=== PATIENT | male | born 1965 | race Caucasian/White ===

== ENCOUNTER 2017-09-25 08:23 | Day surgery (SDC) | payer BC, MEDICARE ==
[2017-09-19 16:38] VITALS: BMI 34.9
[~2017-09-25 08:23] MED LIST: AMPICILLIN 1,000 MG in SODIUM CHLORIDE 0.9% 50 ML IVPB ONE; DEXAMETHASONE SOD PHOSPHATE 10 MG/ML 1 ML VIAL IV ONE; GENTAMICIN 200 MG in SODIUM CHLORIDE 0.9% 100 ML IVPB ONE; LACTATED RINGERS 1,000 ML IV SCH; MIDAZOLAM 2 MG/2 ML VIAL IV PRN; ONDANSETRON 4 MG/2 ML VIAL IVP ONE
[2017-09-25] MEDS ORDERED: LIDOCAINE 1% 20 ML VIAL (10MG/ML) FOR IV START INTRADERMA ONE (09:04)
[2017-09-25 09:05] LABS: Glucose,Whole Blood 151 mg/dL (75-99)
[2017-09-25] MEDS ORDERED: SUCCINYLCHOLINE CHLORIDE VIAL 200 MG/10 ML VIAL IV ONE (09:26)
[2017-09-25] MEDS ORDERED: MIDAZOLAM 2 MG/2 ML VIAL ONE (09:26)
[2017-09-25] MEDS ORDERED: fentaNYL (PF) 50 MCG/ML 2 ML AMP ONE (09:26)
[2017-09-25] MEDS ORDERED: NEOSTIGMINE 1 MG/ML 10 ML VIAL ONE (09:26)
[2017-09-25] MEDS ORDERED: LIDOCAINE 1% INJ 10MG/ML (20 ML MDV) ONE (09:26)
[2017-09-25] MEDS ORDERED: GLYCOPYRROLATE 0.2 MG/ML 2 ML VIAL ONE (09:26)
[2017-09-25] MEDS ORDERED: HYDROmorphone (PF) 1 MG/ML ONE (09:26)
[2017-09-25] MEDS ORDERED: ROCURONIUM BROMIDE 10 MG/ML 10 ML VIAL IV ONE (09:26)
[2017-09-25] MEDS ORDERED: PROPOFOL 10 MG/ML 20 ML VIAL IV ONE (09:26)
[2017-09-25] MEDS ORDERED: GENTAMICIN 80 MG in SODIUM CHLORIDE 0.9% 200 ML IRRIGATION ONE (10:01)
--- NOTE | 2017-09-25 11:16 | P.OP ---
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 He has failed conservative measures. He comes for an inflatable implant. Description of Procedure: The patient is brought to the operating suite. He is given a successful general endotracheal anesthesia. A sterile prep and drape was administered. He was given prophylactic antibiotics. A midline incision from the base of the penis to just above the pubis is made. I dissect down through the subcutaneous tissue. The rectus fascia is opened in the midline. The prevesical space is developed. A 65 mL reservoir is placed and filled without tension. The tubing is brought out through the external inguinal ring. The rectus fascias closed with the running 0 PDS. The corpora cavernosa I then cleaned bilaterally. Stay stitches with 3-0 PDS are placed. Corporotomies were made bilaterally. He is dilated proximally and distally with Metzenbaum scissors dilated from 8-12. It is of note that the corpora did not bleed much due to his diabetes and the dilation is very tight up to 12-Syriac Hegar. Because of this a CXR cylinder will be placed instead of the traditional CX. The corpora measures 11 proximally and 7 distally bilaterally. I used a 14 cm with 4 cm rear-tip steel hanger. Using the Russel introducer and the Boubacar needle each of the cylinders brought out through the corporal tips bilaterally through the glans penis. Each cylinder fits nicely into the corporal dilations. Cylinder I dilated nicely without ST deformities. The corporotomies are closed with running 3-0 PDS. I inflated the implant another time, it inflates nicely. I connected the reservoir to the scrotal pump with straight connects. Implant is inflated one more time with the scrotal pump without difficulty. Scrotal pumps placed in a separate compartment in the right hemiscrotum. The wound is closed with 3-0 chromic and then 4-0 Monocryl. Patient's awakened and returned recovery room good condition. Blood loss is approximately 50 mL. The urine is clear postoperatively with a straight cath. The patient tolerated the procedure well.
[2017-09-25 11:41] LABS: Glucose,Whole Blood 126 mg/dL (75-99)
[2017-09-25] MEDS: HYDROmorphone 0.5 MG/0.5 ML SYRINGE IVP PRN ×2 (11:46→11:53)
[2017-09-25 11:52] VITALS: TEMP 97.6
[2017-09-25] MEDS ORDERED: HYDROcodone/APAP 7.5-325MG 1 EACH TAB PO ONE (13:32)
[2017-09-25 13:50] VITALS: RESP 18
[2017-09-25] MEDS ORDERED: ONDANSETRON ODT 4 MG TAB PO STA (14:38)
[2017-09-25 14:42] VITALS: BP 148/88; PULSE 80
== END 2017-09-25 15:03 | disposition home or self-care (01) ==
LOC: OR 08:23
PROVIDERS: ATTEND Urology
DX: E10.51 Type 1 diabetes mellitus with diabetic peripheral angiopathy without gangrene (principal); N52.1 Erectile dysfunction due to diseases classified elsewhere; I12.9 Hypertensive chronic kidney disease with stage 1 through stage 4 chronic kidney disease, or unspecified chronic kidney disease; E10.22 Type 1 diabetes mellitus with diabetic chronic kidney disease; N18.9 Chronic kidney disease, unspecified; Z94.0 Kidney transplant status; Z89.511 Acquired absence of right leg below knee; Z89.422 Acquired absence of other left toe(s); E78.00 Pure hypercholesterolemia, unspecified; K21.9 Gastro-esophageal reflux disease without esophagitis; Z86.718 Personal history of other venous thrombosis and embolism; Z79.82 Long term (current) use of aspirin; Z79.4 Long term (current) use of insulin; Z79.899 Other long term (current) drug therapy; Z79.891 Long term (current) use of opiate analgesic; Z91.013 Allergy to seafood; Z87.891 Personal history of nicotine dependence
CPT/HCPCS: 54405; C1713; C1813; J2250; J0330; J1580 ×2; J1100; J2710; J2405; J2001; J3010; J0290; J1170 ×2; J2704

== ENCOUNTER → 2017-12-23 | Outpatient (CLI) | payer MEDICARE ==
[2017-12-23 12:53] LABS: Appearance,Urine Clear (Clear); Bilirubin,Urine Negative (Negative); Blood,Urine Small (Negative); Color,Urine Yellow; Glucose,Urine (UA) Negative (Negative); Ketones,Urine Negative (Negative); Leukocyte Esterase,Urine Negative (Negative); Nitrite,Urine Negative (Negative); PH, Urine 6.5 (5.0-8.0); Protein,Urine 1+ (Negative); RBC,Urine 4 /hpf (0-5); Specific Gravity,Urine 1.011 (1.001-1.035); Squamous Epithelial Cell,Urine <1 /hpf (0-4); Urobilinogen,Urine <2.0 mg/dL (<2.0)
[2017-12-23 12:56] LABS: Anion Gap 13 mmol/L; Blood Urea Nitrogen 19 mg/dL (9-20); Calcium 10.1 mg/dL (8.4-10.2); Carbon Dioxide 29 mmol/L (22-30); Chloride 97 mmol/L (98-107); Glucose 233 mg/dL (74-99); Potassium 5.1 mmol/L (3.5-5.1); Sodium 139 mmol/L (137-145)
[2017-12-23 13:02] LABS: Basophils # (A) 0.1 k/uL (0-0.2); Basophils % (A) 1 %; Eosinophils # (A) 0.1 k/uL (0-0.7); Eosinophils % (A) 2 %; HGB 17.9 gm/dL (13.0-17.5); Lymphocytes % (A) 13 %; MCH 28.7 pg (25.0-35.0); MCHC 32.1 g/dL (31.0-37.0); MCV 89.3 fL (80.0-100.0); Mean Platelet Volume 7.2; Monocytes # (A) 0.5 k/uL (0-1.0); Monocytes % (A) 6 %; Neutrophils # (A) 5.9 k/uL (1.3-7.7); Neutrophils % (A) 77 %; Platelet Count 271 k/uL (150-450); RBC 6.25 m/uL (4.30-5.90); RDW 13.2 % (11.5-15.5); WBC 7.6 k/uL (3.8-10.6)
[2017-12-23 13:04] LABS: HCT 55.8 % (39.0-53.0)
== END | disposition home or self-care (01) ==
LOC: LABPAT 12:24
PROVIDERS: ATTEND Urology
DX: Z01.812 Encounter for preprocedural laboratory examination (principal); N99.89 Other postprocedural complications and disorders of genitourinary system; R35.0 Frequency of micturition; Z79.899 Other long term (current) drug therapy
CPT/HCPCS: 36415; 80048; 81001; 85025; 87086

== ENCOUNTER 2017-12-25 08:32 | Day surgery (SDC) | payer MEDICARE ==
[2017-12-20 15:34] VITALS: BMI 33.9
[~2017-12-25 08:32] MED LIST changes: -DEXAMETHASONE SOD PHOSPHATE 10 MG/ML 1 ML VIAL IV ONE; +GENTAMICIN 140 MG in SODIUM CHLORIDE 0.9% 100 ML IVPB ONE; -GENTAMICIN 200 MG in SODIUM CHLORIDE 0.9% 100 ML IVPB ONE; +HYDROmorphone 0.5 MG/0.5 ML SYRINGE IVP PRN; -MIDAZOLAM 2 MG/2 ML VIAL IV PRN; +MORPHINE SULFATE 4 MG/ML SYRINGE IV PRN; -ONDANSETRON 4 MG/2 ML VIAL IVP ONE
[2017-12-25 08:50] VITALS: BP 161/88; PULSE 92; RESP 18; TEMP 98
[2017-12-25] MEDS ORDERED: LIDOCAINE 1% 20 ML VIAL (10MG/ML) FOR IV START INTRADERMA ONE (09:09)
[2017-12-25] MEDS ORDERED: ONDANSETRON 4 MG/2 ML VIAL ONE (09:13)
--- NOTE | 2017-12-25 10:01 | P.DS ---
Providers Date of admission: 12/25/2017 Attending physician: Kike Marlow Primary care physician: Neal Rodrigez MD Hospital Course: The patient had a penile implant placed approximately 3 months ago. His initial visit showed that the implant was working however proximally month ago he came in the implant did not appear to be working by him or myself. He was set up for an implant revision however today when I cycled the implant seemed to work nicely. I am uncertain as to what was going on perhaps a small pin in the pump was misaligned and has realigned itself appeared at this point time I see no reason to revise this at is pumping and deflating nicely. I'll see him back in the office in 2 weeks Plan - Discharge Summary New Discharge Prescriptions: No Action Insulin Aspart [NovoLOG] 0 units SQ ACHS Mycophenolate Mofetil [Cellcept] 1,000 mg PO BID Tacrolimus [Prograf] 2 mg PO Q12H Omeprazole [PriLOSEC] 20 mg PO AC-BRKFST HYDROcodone/APAP 5-325MG [[place] 5] 1 - 2 each PO Q4H PRN PRN Reason: Pain Magnesium 1,000 mg PO BID Aspirin [Adult Low Dose Aspirin EC] 81 mg PO DAILY Lisinopril [Prinivil] 5 mg PO BID Hydrocodone/Acetaminophen [[place] 7.5-325] 1 each PO Q4HR PRN #30 tab PRN Reason: Pain Control Discharge Medication List Aspirin [Adult Low Dose Aspirin EC] 81 mg PO DAILY 07/15/15 [History] HYDROcodone/APAP 5-325MG [[place] 5] 1 - 2 each PO Q4H PRN 07/15/15 [History] Insulin Aspart [NovoLOG] 0 units SQ ACHS 07/15/15 [History] Magnesium 1,000 mg PO BID 07/15/15 [History] Mycophenolate Mofetil [Cellcept] 1,000 mg PO BID 07/15/15 [History] Omeprazole [PriLOSEC] 20 mg PO AC-BRKFST 07/15/15 [History] Tacrolimus [Prograf] 2 mg PO Q12H 07/15/15 [History] Lisinopril [Prinivil] 5 mg PO BID 09/19/17 [History] Hydrocodone/Acetaminophen [[place] 7.5-325] 1 each PO Q4HR PRN #30 tab 09/25/17 [ Rx] Activity/Diet/Wound Care/Special Instructions: RETURN VISIT DR MARLOW 2 WEEKS Discharge Disposition: HOME SELF-CARE
[2017-12-25 11:24] LABS: Glucose,Whole Blood 130 mg/dL (75-99)
== END 2017-12-25 09:44 | disposition home or self-care (01) ==
LOC: OR 08:32
PROVIDERS: ATTEND Urology
DX: T83.410A Breakdown (mechanical) of implanted penile prosthesis, initial encounter (principal); Z53.8 Procedure and treatment not carried out for other reasons; Z79.82 Long term (current) use of aspirin; Z79.899 Other long term (current) drug therapy; Z79.4 Long term (current) use of insulin
CPT/HCPCS: 84132

== ENCOUNTER → 2024-10-20 | Outpatient (CLI) | payer MEDICARE ==
--- NOTE | 2024-10-20 12:25 | XR ---
EXAMINATION TYPE: XR knee complete RT DATE OF EXAM: 10/20/2024 11:49 AM COMPARISON: None CLINICAL INDICATION: Male, 59 years old with history of E11.622; PHH, pain TECHNIQUE: XR knee complete RT 2 views submitted. FINDINGS: Below-knee amputation stable appearance of the interpretation site. No evidence for osseous erosion definitively visualize atherosclerosis of the arterial vasculature mild degeneration changes of the knee with joint space narrowing and osteophyte formation. IMPRESSION: 1. No evidence for osseous erosion to suggest sesamoiditis. Consider MRI pelvis concern. No acute oss eous pathology. 2. Mild tricompartmental osteoarthritic changes. [facility], , 10/20/2024 12:23 PM
== END | disposition home or self-care (01) ==
LOC: RADXRMAIN 11:28
PROVIDERS: ATTEND Internal Medicine Infectious Disease
DX: E11.622 Type 2 diabetes mellitus with other skin ulcer (principal); M17.11 Unilateral primary osteoarthritis, right knee

== ENCOUNTER → 2025-01-18 | Outpatient (CLI) | payer MEDICARE ==
--- NOTE | 2025-01-18 08:49 | US ---
EXAMINATION TYPE: US arterial LE single level DATE OF EXAM: 01/18/2025 8:28 AM COMPARISONS: None. CLINICAL INDICATION: Male, 59 years old with history of P97.522 NON-PRESSURE CHRONIC ULCER OF OTHER P ART O; non healing ulcer dorsal left foot. Left toes amputated. right leg amputee. TECHNIQUE: Systolic pressures were taken of the upper and lower extremity arteries with ankle-brachia l indices and toe brachial indices calculated bilaterally. History of: Smoker: Yes Hypertension: Yes Diabetic: Yes Hyperlipidemia: No TIA/CVA: No Previous Vascular Surgery: No CAD: No MD: No Vascular Ulcers: Left Claudication: No Gangrene: No FINDINGS: Doppler Waveforms: Right: amputee Left: multiphasic PTV, monophasic DP Brachial Artery systolic pressure: Right: 152 Left: deferred due to AV fistula Posterior Tibial artery systolic pressure: Right: amputee Left: could not occlude Dorsalis Pedis artery systolic pressure: Right: amputee Left: could not occlude Toe artery systolic pressure: Right: amputee Left: amputee Ankle-Brachial Indices: Right: amputee Left: could not occlude/ unable to calculate Toe Brachial Indices: Right: amputee Left: amputee (Normal > 0.6; Mild 0.35 - 0.59, Moderate 0.12 - 0.34, Severe <0.12) IMPRESSION: Amputation changes with inability to occlude the left lower extremity and calculate NIMISHA. Consider fur ther evaluation with CTA runoff. [facility], , 01/18/2025 8:47 AM
== END | disposition home or self-care (01) ==
LOC: RADUSWWP 08:01
PROVIDERS: ATTEND Internal Medicine Infectious Disease
DX: E11.622 Type 2 diabetes mellitus with other skin ulcer (principal); L97.812 Non-pressure chronic ulcer of other part of right lower leg with fat layer exposed; L97.522 Non-pressure chronic ulcer of other part of left foot with fat layer exposed; Z89.511 Acquired absence of right leg below knee; I10 Essential (primary) hypertension
CPT/HCPCS: 93922